=== PATIENT | male | born 1990 | race Caucasian/White ===

== ENCOUNTER → 2021-10-12 | Outpatient (CLI) | payer BC ==
[2021-10-12 12:31] LABS: BASO # 0.03 K/mm3 (0.02-0.10); EOS # 0.14 K/mm3 (0.04-0.40); EOS % 2.6 % (0.0-4.0); HEMATOCRIT 46.5 % (42.0-52.0); LYMPH# 1.52 K/mm3 (1.50-4.00); MEAN CELL VOLUME 87 fl (78-100); MEAN CORPUSCULAR HEMOGLOBIN 30 pg (27-31); MEAN CORPUSCULAR HGB CONC 34 g/dL (33-37); MEAN PLATELET VOLUME 13.7 fl (7.4-10.4); MONO # 0.22 K/mm3 (0.20-0.80); NEU # 3.52 K/mm3 (1.40-6.50); PLATELET COUNT 108 K/mm3 (130-400); RED BLOOD COUNT 5.32 M/mm3 (4.20-5.60); RED CELL DISTRIBUTION WIDTH 12.9 % (11.5-14.5); WHITE BLOOD COUNT 5.4 K/mm3 (4.8-10.8)
[2021-10-12 12:48] LABS: ALBUMIN 4.7 g/dL (3.5-5.0)
[2021-10-12 12:49] LABS: POTASSIUM 4.7 mmol/L (3.5-5.1); SODIUM 142 mmol/L (136-145)
[2021-10-12 12:50] LABS: CALCIUM 9.8 mg/dL (8.3-10.5)
[2021-10-12 12:51] LABS: GLUCOSE 92 mg/dL (75-110); TOTAL PROTEIN 7.1 g/dL (6.4-8.3)
[2021-10-12 12:52] LABS: CARBON DIOXIDE 27 mmol/L (22-29)
[2021-10-12 12:53] LABS: TOTAL BILIRUBIN 0.9 mg/dL (0.2-1.2)
[2021-10-12 12:56] LABS: AST-SGOT 34 U/L (5-34)
[2021-10-12 12:57] LABS: ALT/SGPT 31 U/L (0-55)
[2021-10-12 13:06] LABS: TROPONIN-I < 0.030 ng/mL (<0.030)
== END ==
LOC: LAB 12:19
PROVIDERS: Nurse Practitioner Family
DX: R07.9 Chest pain, unspecified (principal)